=== PATIENT | male | born 1965 | race Caucasian/White ===

== ENCOUNTER 2024-08-14 03:02 | Emergency (ER) | payer BC, SELFPAY ==
[2024-08-14 03:05] VITALS: BP 168/98
[2024-08-14 03:15] VITALS: BMI 30.3
--- NOTE | 2024-08-14 04:27 | ED.GENMED ---
History of Present Illness
General
Chief Complaint: Nose Bleed
Source: patient
Exam Limitations: none
Time Seen by Provider: 08/14/24 03:50
Nursing documentation reviewed up to this point in time: agreed with
History of Present Illness
History of Present Illness:
Note:
CHIEF COMPLAINT(S)
Nasal bleeding and congestion.
HISTORY OF PRESENT ILLNESS
The patient is a 58-year-old male who presented with nasal bleeding. The bleeding episode started spontaneously while the patient was awake. He reports feeling congested with a sensation as if something was stuck in his nose, although he did not see
anything prior to the bleeding incident. He has been dealing with these symptoms for the past few days and was started on a z-pack by his PCP. The bleeding was initially managed by applying ice and compression, which seems to have controlled it as
he reports no active bleeding now. The patient described the congestion as particularly pronounced on the left side, and he experienced a heavy sensation, which upon relief led to a noticeable improvement in breathing. He was alarmed because he
forcefully blew his nose these evening and a soft tissue mass that came out.
PHYSICAL EXAM
General: Patient is well appearing and in no acute distress; non-toxic
Skin: Warm and dry, no rashes or lesions
Head: Normocephalic, atraumatic
Eyes: Sclera non-icteric. EOMs intact.
Mouth: No intra-oral lesions, uvula midline, no blood in posterior pharynx
Nose: Dried blood noted in right nare. Left nare unremarkable. No evidence of nasal polyps or nasal hematoma
Cardiac: Regular rate
Pulm: Normal respiratory effort, no wheezes, rales, or rhonchi
Neuro: CN II-XII intact, no focal neurologic deficits.
Psychiatric: Appropriate mood and affect.
DIFFERENTIAL DIAGNOSIS
The Differential Diagnosis includes, in no particular order and is not limited to:
- Epistaxis due to nasal dryness or minor trauma
- Allergic rhinitis
- Nasal polyps
- Sinusitis
- Upper respiratory tract infection
- Deviated nasal septum
- Hypertension-related nasal bleeding
- Foreign body in the nasal passage
- Coagulation disorder
- Nasal tumor
CHART REVIEW
No previous ER physician documentation in [facility] to review
MDM/DISPOSITION
58-year-old male presents emergency department today with concerns of transient episode of nosebleeding following a mass exiting his nose following forcefully blowing his nose. He did bring in the mass from his nose. It appears to be a
flesh-colored mass with vascularity around 2 x 4 cm in size. Reviewed case with ENT doctor on-call. Plan is to have him follow-up with ENT as an outpatient and use nasal saline spray as needed. Did attempt to send mass/lesion off to pathology
however pathology lab states that since mass is not sterile do not know how to preserve it tested. Patient stable for discharge.
Phy Exam
Physical Exam
Physical Exam:
see hpi
Course
Orders/Labs/Results
Orders:
Orders
08/14/24 04:28
Bedside Pathology Routine
Date Specimen was Collected: 08/14/24
Surgeon: Kiara Gandhi PA-C
Specimen Submitted: nasal mass expelled from nose
Pre-Operative Diagnosis: n/a
Operative Procedure: n/a
Vital Signs
Initial and Last Documented VS:
Initial Vital Signs
Temp Pulse Resp BP Pulse Ox
97.8 F 76 20 168/98 97
08/14/24 03:05 08/14/24 03:05 08/14/24 03:05 08/14/24 03:05 08/14/24 03:05
Last Documented Vital Signs
Temp Pulse Resp BP Pulse Ox
97.8 F 76 20 168/98 98
08/14/24 03:05 08/14/24 03:05 08/14/24 03:05 08/14/24 03:05 08/14/24 03:16
*Critical Care Note
Total Time (30-74mins, 75-104mins- exclusive of procedures): Not Applicable
ED Attending Note
-
Portions of this chart may have been created with voice recognition software.� Occasional wrong word or��sound alike� substitutions may have occurred due to the inherent limitations of voice recognition software.
Discharge Plan
Departure
Patient Disposition: Home (Routine Discharge)
Date of Disposition: 08/14/24
Time of Disposition: 04:26
Patient with high blood pressure during this ER visit?: Yes
Condition: Good
Discharge Problem:
Nasal mass
Instructions: Nasal polyps, BLOOD PRESSURE
Prescriptions:
No Action
pantoprazole 20 mg Tablet,Delayed Release (Dr/Ec)
20 mg PO DAILY
lisinopril 40 mg Tablet
40 mg PO DAILY
ezetimibe 10 mg Tablet
10 mg PO DAILY
metoprolol tartrate 25 mg Tablet
25 mg PO DAILY
hydrochlorothiazide 12.5 mg Tablet
12.5 mg PO DAILY
amlodipine benzoate
5 mg PO DAILY
Referrals:
Pino Limon MD [Active, Otology] - Call in 1-3 days for appt
Jeison Cortés Jr., DO [Family Provider, Family Practice]
Activity Restrictions/Additional Instructions:
Please follow-up with your primary care provider. Please follow-up with the ENT.
PLEASE RETURN TO THE EMERGENCY DEPARTMENT SHOULD YOU DEVELOP ANY ACUTE WORSENING OF YOUR SYMPTOMS, UNCONTROLLED BLEEDING, COUGHING UP BLOOD, DIZZINESS, LIGHTHEADEDNESS, OR ANY OTHER SIGNS OR SYMPTOMS WORRISOME TO YOU.
Interventions
Interventions:
*Risk Screen - Suicide Last Done: 08/14/24 03:05
*General Assessment Last Done: 08/14/24 03:05
*Neglect/Abuse Screening Last Done: 08/14/24 03:05
*ED- Fall Risk Assessment Last Done: 08/14/24 03:10
*ED COVID-19 Vaccine History Last Done: 08/14/24 03:10
*Nursing Disposition Last Done: 08/14/24 04:50
ED-EENT Assessment Last Done: 08/14/24 03:16
Discharge Date and Time
Discharge Date/Time: 08/14/24 05:27
Print Language: MONGOLIAN
== END 2024-08-14 05:27 | disposition home or self-care (01) ==
LOC: EMR 03:02
PROVIDERS: EMERGENCY PHYSICIAN Student in an Organized Health Care Education/Training Program; FAMILY PHYSICIAN Family Medicine
DX: J34.89 Other specified disorders of nose and nasal sinuses (principal); R04.0 Epistaxis
CPT/HCPCS: 99282